=== PATIENT | male | born 1955 | race Two or more races ===

== ENCOUNTER → 2016-08-06 | Outpatient (CLI) | payer BC ==
--- NOTE | 2016-08-06 17:28 | RADRPT ---
PROCEDURE: Right knee radiographs. CLINICAL INDICATION: Right knee pain. TECHNIQUE: Three views. Weight bearing. Frontal, lateral, and patellar view. COMPARISON: No prior studies are available for comparison. FINDINGS: There is no fracture or dislocation. The soft tissues are normal. There are degenerative changes with small osteophytes arising from all 3 joint compartment margins. There is no joint space narrowing or deformity. There is no lytic or blastic lesion. There is no radiopaque foreign body. IMPRESSION: 1. Mild degenerative changes. 2. Otherwise normal images of the right knee. RPTAT: QQ .Dandy Xavier MD, MD Date Time Electronically viewed and signed by .Dandy Xavier MD, on 08/06/2016 17:28 .R/
--- NOTE | 2016-08-06 17:29 | RADRPT ---
PROCEDURE: XR Right hip and pelvis. CLINICAL INDICATION: Right hip pain. Pelvic pain. TECHNIQUE: Two views. Frontal pelvis and lateral right hip. COMPARISON: No prior studies are available for comparison. FINDINGS: There is no fracture or dislocation. The soft tissues are normal. There are degenerative changes of the right hip with joint space narrowing and osteophytes. There are degenerative changes of the left hip with osteophytes. There is no lytic or blastic lesion. The upper pelvis is not completely included on the image. IMPRESSION: 1. Moderate degenerative changes of the right hip. 2. Mild degenerative changes of the left hip. 3. Otherwise unremarkable study. RPTAT: QQ .Danyd Xavier MD, Date Time Electronically viewed and signed by .Dandy Xavier MD, on 08/06/2016 17:29 .R/
--- NOTE | 2016-08-06 21:43 | HKNOTE ---
DATE OF SERVICE: 08/06/2016 MAIN COMPLAINT: 1. Pain in the right knee. 2. Pain in the right hip. 3. Low back pain. HISTORY OF MAIN COMPLAINT: The patient is a 61-year-old male who injured his right knee in 12/2015. He was getting out of a car when he fell and twisted his knee. He could barely get up from the gr ound, and once he was up, he could hardly walk. Since then, he has had "constant pain" in the knee. In addition to this, he has had pain in his right hip which has been present now for more than a yea r. In addition to this, he has a history of pain in his lower back which he had 2 or 3 years ago and wh ich seems to have settled down since then. The patient has not seen an orthopedic surgeon for these problems, but he has a friend who is a card iac surgeon who ordered x-rays and MRIs of the lumbar spine, his hip and his knee, and the patient i s here to see me because both his and his daughter have been patients of mine. PRESENT COMPLAINTS: His main problem is in the right knee. He is not sure if the knee swells. It locks from time to time. It feels unstable and wants to give way about once a week. On a level parisa face, he can walk 7000 steps a day using his Fit Bit. However, he has pain. He gets pain every day , and he gets pain about half the number of steps that he takes. He is not taking any medications for the pain. He limps most of the time. He does not have a shoe lift. He can clip his toenails and tie his shoe laces. PAST ORTHOPEDIC HISTORY: PREVIOUS ORTHOPEDIC OPERATIONS: None. 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 The left leg is much weaker than the right leg. PRIOR CORTISONE INTAKE: He has had 1 cortisone injection in the past into his right shoulder. ALCOHOL INTAKE: He drinks 1 or 2 glasses of wine a week. He has no other joint problems other than mentioned above. He has never had any blood tests for art hritis. No injury to his hips or knees other than above. 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 He spends most of his time sitting or walking in [employer] facility. PAST MEDICAL HISTORY: 1. Hypertension. 2. Diabetes. 3. Hypercholesterolemia. PAST SURGICAL HISTORY: Negative. ALLERGIES: PENICILLIN. MEDICATIONS: 1. Metformin 500 mg twice a day. 2. Toprol 25 mg a day. 3. Atacand 16 mg a day. 4. Crestor daily. FAMILY HISTORY: Father at 98 of heart problems. Mother at 91 of diabetes. SYSTEMS REVIEW: Hypertension, diabetes, otherwise entirely negative. HABITS: The patient quit smoking 18 years ago. He drinks 2 to 3 glasses of wine a week. PRIMARY CARE PHYSICIAN: Dr. Jordy Celeste, . REFERRING PHYSICIAN: Dr. Jackson, Cardiac Surgeon, [address] [place] [address], [address], [place] [id number]. PHYSICAL EXAMINATION: GENERAL: The patient is a fit-looking but overweight 61-year-old male. He has an antalgic gait whi ch is made more complex by the atrophy of his left leg. VITAL SIGNS: Height 5 foot 9 inches. Weight 225 pounds. Blood pressure 150/70, temperature 97.8. GAIT: The patient walks without a walking aid. BACK: Dynamic pain assessment reveals a pain free range of motion in flexion, extension, lateral be nding, and rotation. Inspection of the spine reveals no list. There is no lumbar paraspinal muscle s pasm. The pelvis is level. Facet stress test is negative bilaterally. Palpation of the spine demonst rates no tenderness of the spinous processes, facet joints, sacroiliac joint, sciatic notch, or post erior thigh. Lateral flexion to the left and right causes him to have pain in his lower back. NEUROLOGIC: Marked atrophy of the left leg compared to the right (polio). Deep tendon reflexes wit h reinforcement: Right knee jerk +, left knee jerk +, right ankle jerk +, left ankle jerk +. Strai ght leg raising negative bilaterally at 80 degrees. Lasegue and KP tests are negative. RIGHT HIP: Flexion is 110 degrees, external rotation contracture 20 degrees, internal rotation -20 degrees, abduction and adduction normal. All limits of right hip motion cause him to have pain in t he right knee while keeping the right knee stationary. LEFT HIP: A full range of motion without pain. RIGHT KNEE: The right knee shows normal alignment. Active and passive extension is 0 degrees. Activ e and passive flexion is 135 degrees. The medial and lateral collateral ligaments and cruciate ligam ents are intact. Sj test is negative. There is 1+ effusion and tender over the medial joint bar e. There is no scarring, crepitus, or cysts. The patella tracks normally. There is no tenderness on the articular surface of the patella or in the patellar groove. The Q angle is normal. LEFT KNEE: The left knee shows normal alignment. Active and passive extension is 0 degrees. Active and passive flexion is 135 degrees. The medial and lateral collateral ligaments and cruciate ligamen ts are intact. Sj test is negative. There is no effusion, tenderness, scarring, crepitus, or cy sts. The patella tracks normally. There is no tenderness on the articular surface of the patella or in the patellar groove. The Q angle is normal. IMAGING: Plain x-rays of his pelvis and hips obtained today (3 views) obtained at the [facility] [place] were reviewed. These show approximately 50% narrowing of the right hip joint space without osteophyte formation, subchondral sclerosis or intraosseous cyst formation. An MRI scan of the right hip obtained on 07/02/[address] Crawford as showing right hip arthrosis with degenerative labral tearing. High-grade chondral loss noted at the femoral and aceta bular margin ____ subchondral edema. Small right hip joint effusion and reactive synovitis. An MRI scan of the right knee obtained on 05/22/[address] Arellano as showing "compl ex tear of the posterior horn body junction and posterior horn medial meniscus yielding a small flap near its tibial posterior attachment. Mild chondral wear of the medial and patellofemoral compartm ents. No osseous abnormality. An MRI scan of the lumbar spine obtained on 05/02/[address] Crawford as showin. Severe facet spondylolysis at L4-L5 with anterolisthesis and subsequent severe spinal stenosis, severe narrowing of both lateral recesses and severe bilateral neural foraminal narrowing, left wors e than right. 2. Disk bulges at L5-S1 with severe right and moderate left neural foraminal narrowing. 3. Moderate spondylosis at L3-L4 with moderate central stenosis, moderate narrowing of both lateral recesses and moderate to severe bilateral neural foraminal narrowing. DIAGNOSES: 1. Torn medial meniscus and moderate degenerative osteoarthritis of the right knee. 2. Moderate degenerative osteoarthritis of the right hip. 3. Severe spinal stenosis. 4. Hypertension. 5. Type 2 diabetes. 6. Hypercholesterolemia. 7. Sequela of childhood polio. MANAGEMENT: The patient is here to see me today primarily for his right knee. He is not here to se e me about his spine since I am a hip and knee specialist, but he brings his MRI scan with him for m y review. His main current problem is pain in his right knee, instability and locking of the right knee. The MRI scan, these are the cardinal symptoms of a torn meniscus. However, the patient's knee pain is reproduced by forcible internal and external rotation of the rig ht hip, suggesting that most of the knee pain may be referred from the hip. With regard to his spine, although he is symptom free, he should see a operations specialist with the act ual MRI pictures of the lumbar spine for a consultation as to whether or not any preemptive surgery might be needed. The patient is once again reminded that I am not a operations specialist. KNEE TREATMENT: The patient is advised he will need to have an arthroscopic operation on the right knee based on knee symptoms and the MRI. It is difficult to know how much of his pain is coming fro m his hip, but certainly the locking and instability are related to a torn meniscus. The procedure of knee arthroscopy was discussed with him in a fair amount of detail including the hospital course and recovery as well as possible postoperative complications. RIGHT HIP: The patient was advised that he does have moderate degenerative osteoarthritis of the ri t hip. The hip is quite markedly stiff, out of proportion to the degree of arthritis seen on the x-ray. The hip MRI simply confirms that there is arthritis in the hip. The patient was advised megan t there is no doubt that he will eventually need to have a right hip replacement. The hip replaceme nt surgery was not discussed with him today since the main thrust of today's visit was for his right knee. LUMBAR SPINE: The patient is advised to see a operations specialist in regard to his lumbar spine. FINAL DIAGNOSES: 1. Torn medial meniscus and moderate degenerative osteoarthritis of the right knee. 2. Moderate degenerative osteoarthritis of the right hip. 3. Severe spinal stenosis. 4. Hypertension. 5. Type 2 diabetes. 6. Hypercholesterolemia. 7. Sequela of childhood polio. Under sterile conditions, the patient was given injection of 10 mL of 2% lidocaine into the right hi p joint. Subsequently he was given 2 mL of Kenalog into the hip joint. Re-examination revealed that forcibly internally and externally rotating the right hip no longer rep roduced pain in the knee, suggesting that much of his knee pain actually is referred from the hip. The patient is advised to wait a few days and see what the effect of the cortisone might be on his k nee. It is possible that his most pressing symptoms in the knee (pain) will be relieved by the dav isone into the hip joint. Regardless, based on his symptoms, clinical findings and MRI, he will need to have an arthroscopic o peration on the right knee. He will need to have a full medical evaluation and clearance for surgery in a week or so prior to th e surgery. He will call to schedule the knee arthroscopy if and when he is ready to proceed. He was also encou raged to get a second opinion on all of these issues if he so wishes. Dictated By: JEAN PIERRE BEAN/WESTON Conf#: [id number] DID#: [id number]
== END | disposition home or self-care (01) ==
LOC: EDBD 15:00 → HKI 15:39
DX: S83.241A Other tear of medial meniscus, current injury, right knee, initial encounter (principal); X58.XXXA Exposure to other specified factors, initial encounter; M17.11 Unilateral primary osteoarthritis, right knee; M16.11 Unilateral primary osteoarthritis, right hip; M48.06 Spinal stenosis, lumbar region; I10 Essential (primary) hypertension; E11.9 Type 2 diabetes mellitus without complications; E78.00 Pure hypercholesterolemia, unspecified; M62.562 Muscle wasting and atrophy, not elsewhere classified, left lower leg; B91 Sequelae of poliomyelitis; Z87.891 Personal history of nicotine dependence
CPT/HCPCS: 20610; 73502; 73562; G0463; J3301